=== PATIENT | female | born 1965 | race Caucasian/White ===

== ENCOUNTER 2017-08-31 23:04 | Emergency (ER) | payer SELFPAY ==
[~2017-08-31] VITALS: Ht 167.6 cm; Wt 74.0 kg
[~2017-08-31 23:04] MED LIST: CALC-192 PO; CALC0.25 PO; LEVO125T PO; METR500T PO; VANC250C2 PO
[2017-08-31 23:25] LABS: BASOPHILS # (AUTO) 0.05 x10^3/uL (0-0.1); BASOPHILS % (AUTO) 1 % (0-1); EOSINOPHILS % (AUTO) 4 % (1-7); LYMPHOCYTES % (AUTO) 41 % (22-44); MD NO; MEAN CORPUSCULAR HEMOGLOBIN 30.2 pg (27.0-34.8); MEAN CORPUSCULAR HGB CONC 33.3 g/dL (32.4-35.8); MEAN CORPUSCULAR VOLUME 90.8 fL (80-100); MEAN PLATELET VOLUME 7.4 fL (7.4-10.4); MONOCYTES # (AUTO) 0.61 x10^3/uL (0.2-0.8); MONOCYTES % (AUTO) 11 % (2-9); NEUTROPHILS % (AUTO) 44 % (42-75); PLATELET COUNT 265 x10^3/uL (130-400); RED BLOOD COUNT 4.36 x10^6/uL (3.82-5.3)
[2017-08-31] MEDS ORDERED: SODIUM CHLORIDE 0.9% 1,000ML IVBOLUS ONE (23:30)
[2017-08-31] MEDS ORDERED: PROMETHAZINE 25 MG/ML, 1ML IM ONE (23:30)
[2017-08-31 23:37] LABS: ALBUMIN 4.3 g/dL (3.4-5.0); ANION GAP 11 mmol/L (5-15); CALCIUM 6.6 mg/dL (8.5-10.1); CHLORIDE 106 mmol/L (98-107); CREATININE 1.18 mg/dL (0.55-1.02)
[2017-08-31] MEDS ORDERED: PROMETHAZINE 25 MG/ML, 1ML ONE (23:37)
[2017-08-31 23:38] LABS: SALICYLATE LEVEL < 1.7 mg/dL (2.8-20.0)
[2017-08-31 23:39] LABS: ACETAMINOPHEN < 2 mcg/mL (10-30)
[2017-09-01 01:22] VITALS: BP 121/75
== END 2017-09-01 02:54 | disposition home or self-care (01) ==
LOC: ED 23:59
DX: F10.120 Alcohol abuse with intoxication, uncomplicated (principal); Z79.899 Other long term (current) drug therapy
CPT/HCPCS: 36415; 80048; 80307; 80329; 82040; 84703; 85025; 96372; 99284; J2550; J7030; G0480